=== PATIENT | female | born 1955 | race Caucasian/White ===

== ENCOUNTER → 2017-02-13 | Outpatient (CLI) | payer OTHER ==
[~2017-02-13] MED LIST: ABILIFY10 MG PO; AMANTADINE100 MG PO; ASPIRIN ADULT L81 M2 PO; ATARAX,VISTARIL50 MG PO; ATIVAN0.5 MG PO; B12,B-12,B 12500 MC1 PO; BUSPAR5 MG PO; CEFZIL 250250 MG/5 M PO; CIPROFLOXACIN500 MG PO; CLARITIN-D 12 H1 TAB PO; CLARITIN10 MG PO; CLOZAPINE100 MG PO; CLOZAPINE25 MG PO; COGENTIN0.5 MG PO; CYMBALTA60 M1 PO; EES400 MG PO; EPI-PEN1 MG/ML MR; FETZIMA40 M1 PO; FLEXERIL10 MG PO; FLONASE0.05 MG/AC NS; FLOVENT 220 M220 MCG INH; HYDROCODONE BIT1 T11 PO; LEVAQUIN750 M1 PO; LIPITOR20 MG PO; LIPITOR40 MG PO; LISINOPRIL20 MG PO; LORAZEPAM0.5 MG PO; MEDROL DOSEPAK4 MG PO; MOTRIN800 MG PO; NORFLEX100 MG PO; PREDNISONE10 MG PO; PRINIVIL10 MG PO; PRINIVIL5 MG PO; PROZAC20 MG PO; PYRIDIUM200 MG PO; RISPERDAL0.25 MG PO; ROBAXIN-750750 MG PO; SINGULAIR10 MG PO; SPIRIVA18 MCG IH; SYNTHROID0.05 MG PO; TESSALON PERLE100 MG PO; TOPAMAX100 MG PO; VICODIN 5/500 505 MG PO; VITAMIN D31000 IU PO; VOLTAREN50 MG PO; Vitamin E PO; ZITHROMAX Z PA250 MG PO; ZITHROMAX500 MG PO
[2017-02-13 10:21] LABS: BASO # 0.1 10*3/uL (0.0-0.1); BASO % 0.7 % (0.0-1.0); EOS # 0.2 10*3/uL (0.0-0.4); EOS % 3.2 % (1.0-4.0); HEMATOCRIT 41.5 % (37.0-47.0); HEMOGLOBIN 14.1 g/dl (12.0-16.0); LYMPH % 44.4 % (27.0-41.0); MEAN CELL VOLUME 91.6 fl (81.0-99.0); MEAN CORPUSCULAR HGB 31.1 pg (27.0-31.0); MEAN PLATELET VOLUME 9.5 fl (9.6-12.3); MONO # 0.5 10*3/uL (0.1-1.0); NEUT # 2.9 10*3/uL (2.3-7.9); NEUT % 43.4 % (47.0-73.0); PLATELET COUNT AUTOMATED 242 10*3/uL (130-400); RED BLOOD COUNT 4.53 10*6/uL (4.10-5.10); RED CELL DISTRI WIDTH 13.1 % (0-14.5); WHITE BLOOD COUNT 6.8 10*3/uL (4.8-10.8)
[2017-02-13 10:46] LABS: ALBUMIN 3.5 gm/dl (3.1-4.5); ALKALINE PHOSPHATASE 98 U/L (45-117); BILIRUBIN, TOTAL 0.4 mg/dl (0.2-1.0); BUN 18 mg/dl (7-24); CARBON DIOXIDE 27 mmol/L (21-32); CHLORIDE 108 mmol/L (98-107); CHOLESTEROL 120 mg/dL (<200); EST GLOM FILT AFRICAN AMERICAN > 60 ml/min; GLUCOSE 117 mg/dL (65-99); HDL CHOLESTEROL 61 mg/dl (40-60); IRON 58 ug/dL (50-170); IRON SATURATION 22 %; LDL CHOLESTEROL 46 mg/dL (9-159); POTASSIUM 3.9 mmol/L (3.5-5.1); SGOT/AST 18 IU/L (3-35); SGPT/ALT 26 U/L (12-78); SODIUM 140 mmol/L (136-145); TOTAL PROTEIN 7.1 gm/dL (6.4-8.2); TRIGLYCERIDES 65 mg/dl (<150); UIBC 204 ug/dL (110-365); VLDL CHOLESTEROL 13 mg/dL (6-40)
[2017-02-13 10:51] LABS: HEMOGLOBIN A1c 6.3 % (4.8-5.6)
[2017-02-13 10:52] LABS: THYROID STIM HORMONE (HS) < 0.005 uIU/ml (0.358-4.75)
[2017-02-13 11:20] LABS: FERRITIN 75.2 ng/mL (10.0-291.0); VITAMIN D, 25-HYDROXY 38.8 ng/mL (30-100)
[2017-02-13 11:31] LABS: FOLIC ACID > 24.00 ng/mL (>5.38)
== END ==
LOC: LAB 09:23
PROVIDERS: Physician Assistant Surgical
DX: E11.9 Type 2 diabetes mellitus without complications (principal); E78.5 Hyperlipidemia, unspecified; E55.9 Vitamin D deficiency, unspecified; R63.4 Abnormal weight loss; E56.9 Vitamin deficiency, unspecified; R53.82 Chronic fatigue, unspecified; M79.605 Pain in left leg; M25.551 Pain in right hip; M25.552 Pain in left hip; Z98.84 Bariatric surgery status

== ENCOUNTER 2017-06-03 01:12 | Emergency (ER) | payer OTHER ==
[~2017-06-03] VITALS: Ht 147.3 cm; Wt 65.8 kg
[2017-06-03 01:22] VITALS: BP 123/72
[2017-06-03 01:55] LABS: BASO # 0.1 10*3/uL (0.0-0.1); BASO % 0.7 % (0.0-1.0); EOS # 0.2 10*3/uL (0.0-0.4); EOS % 2.2 % (1.0-4.0); HEMATOCRIT 37.7 % (37.0-47.0); LYMPH # 3.6 10*3/uL (1.3-4.4); LYMPH % 35.8 % (27.0-41.0); MEAN CELL VOLUME 93.3 fl (81.0-99.0); MEAN CORPUSCULAR HGB 32.2 pg (27.0-31.0); MEAN CORPUSCULAR HGB CONC 34.5 g/dl (33.0-37.0); MEAN PLATELET VOLUME 9.5 fl (9.6-12.3); MONO # 0.9 10*3/uL (0.1-1.0); MONO % 9.1 % (3.0-9.0); NEUT # 5.2 10*3/uL (2.3-7.9); PLATELET COUNT AUTOMATED 213 10*3/uL (130-400); RED BLOOD COUNT 4.04 10*6/uL (4.10-5.10); RED CELL DISTRI WIDTH 13.4 % (0-14.5); WHITE BLOOD COUNT 9.9 10*3/uL (4.8-10.8)
[2017-06-03 02:11] LABS: ALBUMIN 3.3 gm/dl (3.1-4.5); ALKALINE PHOSPHATASE 116 U/L (45-117); BUN 14 mg/dl (7-24); CHLORIDE 106 mmol/L (98-107); CREATININE 0.58 mg/dL (0.55-1.02); POTASSIUM 3.6 mmol/L (3.5-5.1); SGOT/AST 19 IU/L (3-35); SGPT/ALT 24 U/L (12-78); SODIUM 141 mmol/L (136-145); TOTAL PROTEIN 6.7 gm/dL (6.4-8.2)
[2017-06-03] MEDS ORDERED: AVPAK AZITHROM250 M1 PO (02:36)
[2017-06-03] MEDS ORDERED: CLARITIN10 MG PO (02:36)
== END 2017-06-03 02:50 | disposition home or self-care (01) ==
LOC: ED 01:12
PROVIDERS: Student in an Organized Health Care Education/Training Program
DX: J40 Bronchitis, not specified as acute or chronic (principal); J06.9 Acute upper respiratory infection, unspecified; J44.9 Chronic obstructive pulmonary disease, unspecified; I10 Essential (primary) hypertension; E78.5 Hyperlipidemia, unspecified; E03.9 Hypothyroidism, unspecified; E11.9 Type 2 diabetes mellitus without complications; Z88.1 Allergy status to other antibiotic agents; Z88.0 Allergy status to penicillin; Z91.013 Allergy to seafood; Z88.8 Allergy status to other drugs, medicaments and biological substances; Z79.899 Other long term (current) drug therapy

== ENCOUNTER → 2017-10-02 | Outpatient (CLI) | payer OTHER ==
[~2017-10-02] MED LIST changes: +AVPAK AZITHROM250 M1 PO
== END | disposition home or self-care (01) ==
LOC: RAD 11:49
DX: M19.042 Primary osteoarthritis, left hand (principal); M19.041 Primary osteoarthritis, right hand

== ENCOUNTER → 2018-03-01 | Outpatient (CLI) | payer MEDICARE, OTHER | END | disposition home or self-care (01) | LOC: RAD 10:54 | DX: M25.512 Pain in left shoulder (principal); M25.511 Pain in right shoulder ==

== ENCOUNTER → 2018-07-17 | Outpatient (CLI) | payer MEDICARE, OTHER | END | disposition home or self-care (01) | LOC: MAMMO 06:51 | DX: Z12.31 Encounter for screening mammogram for malignant neoplasm of breast (principal) ==

== ENCOUNTER → 2019-03-10 | Outpatient (CLI) | payer MEDICARE, OTHER | END | disposition home or self-care (01) | LOC: CT 15:45 | DX: R10.13 Epigastric pain (principal); Z90.710 Acquired absence of both cervix and uterus ==

== ENCOUNTER → 2019-05-18 | Outpatient (CLI) | payer MEDICARE, OTHER ==
[2019-05-18 14:28] LABS: BASO % 0.5 % (0.0-1.0); EOS # 0.2 10*3/uL (0.0-0.4); EOS % 2.6 % (1.0-4.0); HEMATOCRIT 40.4 % (37.0-47.0); HEMOGLOBIN 13.3 g/dl (12.0-16.0); LYMPH # 2.9 10*3/uL (1.3-4.4); LYMPH % 47.9 % (27.0-41.0); MEAN CORPUSCULAR HGB 31.6 pg (27.0-31.0); MEAN CORPUSCULAR HGB CONC 32.9 g/dl (33.0-37.0); MONO # 0.5 10*3/uL (0.1-1.0); MONO % 8.9 % (3.0-9.0); NEUT # 2.4 10*3/uL (2.3-7.9); NEUT % 39.9 % (47.0-73.0); PLATELET COUNT AUTOMATED 201 10*3/uL (130-400); RED BLOOD COUNT 4.21 10*6/uL (4.10-5.10); RED CELL DISTRI WIDTH 13.5 % (0-14.5); WHITE BLOOD COUNT 6.1 10*3/uL (4.8-10.8)
[2019-05-18 15:02] LABS: ALBUMIN 3.8 gm/dl (3.1-4.5); ALKALINE PHOSPHATASE 96 U/L (45-117); BUN 13 mg/dl (7-24); CHLORIDE 108 mmol/L (98-107); CREATININE 0.68 mg/dL (0.55-1.02); IRON 78 ug/dL (50-170); POTASSIUM 4.4 mmol/L (3.5-5.1); SGOT/AST 23 IU/L (3-35); SODIUM 141 mmol/L (136-145); TOTAL IRON BINDING CAPACITY 315 ug/dl (250-450); TOTAL PROTEIN 7.1 gm/dL (6.4-8.2)
[2019-05-18 15:06] LABS: SGPT/ALT 31 U/L (12-78); THYROID STIM HORMONE (HS) 0.411 uIU/ml (0.358-4.75)
[2019-05-18 15:51] LABS: FERRITIN 18.1 ng/mL (10.0-291.0); VITAMIN D, 25-HYDROXY 19.2 ng/mL (30-100)
== END | disposition home or self-care (01) ==
LOC: LAB 13:37
PROVIDERS: Surgery
DX: E55.9 Vitamin D deficiency, unspecified (principal); E11.9 Type 2 diabetes mellitus without complications; R53.83 Other fatigue; Z90.3 Acquired absence of stomach [part of]

== ENCOUNTER → 2019-08-14 | Outpatient (CLI) | payer MEDICARE, OTHER | END | disposition home or self-care (01) | LOC: MRI 09:37 | DX: M50.33 Other cervical disc degeneration, cervicothoracic region (principal); M47.812 Spondylosis without myelopathy or radiculopathy, cervical region ==

== ENCOUNTER → 2019-09-18 | Outpatient (CLI) | payer MEDICARE, OTHER | END | disposition home or self-care (01) | LOC: RAD 11:40 | DX: M47.812 Spondylosis without myelopathy or radiculopathy, cervical region (principal); M50.20 Other cervical disc displacement, unspecified cervical region ==

== ENCOUNTER 2019-12-08 15:23 | Emergency (ER) | payer MEDICARE, OTHER ==
[~2019-12-08] VITALS: Ht 162.5 cm; Wt 99.8 kg
[2019-12-08 15:44] VITALS: BP 120/69
[2019-12-08 16:24] LABS: BASO # 0.1 10*3/uL (0.0-0.1); BASO % 0.8 % (0.0-1.0); EOS # 0.3 10*3/uL (0.0-0.4); HEMATOCRIT 40.1 % (37.0-47.0); HEMOGLOBIN 13.3 g/dl (12.0-16.0); LYMPH # 3.8 10*3/uL (1.3-4.4); LYMPH % 58.6 % (27.0-41.0); MEAN CORPUSCULAR HGB 31.5 pg (27.0-31.0); MEAN CORPUSCULAR HGB CONC 33.2 g/dl (33.0-37.0); MEAN PLATELET VOLUME 9.2 fl (9.6-12.3); MONO # 0.5 10*3/uL (0.1-1.0); MONO % 7.8 % (3.0-9.0); NEUT # 1.8 10*3/uL (2.3-7.9); NEUT % 28.6 % (47.0-73.0); PLATELET COUNT AUTOMATED 230 10*3/uL (130-400); RED BLOOD COUNT 4.22 10*6/uL (4.10-5.10); RED CELL DISTRI WIDTH 13.8 % (0-14.5); WHITE BLOOD COUNT 6.4 10*3/uL (4.8-10.8)
[2019-12-08 16:39] LABS: ALBUMIN 3.6 gm/dl (3.1-4.5); ALKALINE PHOSPHATASE 85 U/L (45-117); BUN 21 mg/dl (7-24); CHLORIDE 109 mmol/L (98-107); CREATININE 0.92 mg/dL (0.55-1.02); LIPASE 103 U/L (73-393); POTASSIUM 4.3 mmol/L (3.5-5.1); SGOT/AST 18 IU/L (3-35); SGPT/ALT 30 U/L (12-78); SODIUM 143 mmol/L (136-145); TOTAL PROTEIN 6.7 gm/dL (6.4-8.2)
[2019-12-08 16:42] LABS: ACT PARTIAL THROMBO TIME 24.3 SECONDS (20.0-32.1); INTERNATIONAL NORM RATIO 0.9 (2.0-3.5)
[2019-12-08 17:00] LABS: BILIRUBIN 1+ (NEGATIVE); BLOOD NEGATIVE (NEGATIVE); CLARITY CLEAR (CLEAR); COLOR YELLOW (YELLOW); GLUCOSE NEGATIVE (NEGATIVE); KETONE 1+ (NEGATIVE); LEUKO ESTERASE NEGATIVE (NEGATIVE); NITRITE NEGATIVE (NEGATIVE); UROBILINOGEN 0.2 E.U./dl (0.2-1.0)
[2019-12-08 17:01] LABS: WBC 0-2 wbc/hpf (0-5)
== END 2019-12-08 18:42 | disposition home or self-care (01) ==
LOC: ED 15:23
PROVIDERS: Nurse Practitioner Family
DX: R29.810 Facial weakness (principal); R20.0 Anesthesia of skin; R20.2 Paresthesia of skin; R51 Headache; J44.9 Chronic obstructive pulmonary disease, unspecified; I10 Essential (primary) hypertension; E03.9 Hypothyroidism, unspecified; E78.00 Pure hypercholesterolemia, unspecified; E11.40 Type 2 diabetes mellitus with diabetic neuropathy, unspecified; Z91.041 Radiographic dye allergy status; Z88.1 Allergy status to other antibiotic agents; Z88.0 Allergy status to penicillin; Z91.013 Allergy to seafood; Z88.8 Allergy status to other drugs, medicaments and biological substances; Z79.899 Other long term (current) drug therapy; Z79.2 Long term (current) use of antibiotics; Z86.73 Personal history of transient ischemic attack (TIA), and cerebral infarction without residual deficits; Z90.710 Acquired absence of both cervix and uterus

== ENCOUNTER → 2020-02-29 | Outpatient (CLI) | payer MEDICARE, OTHER | END | disposition home or self-care (01) | LOC: US 11:18 | DX: E04.2 Nontoxic multinodular goiter (principal) ==

== ENCOUNTER → 2020-03-10 | Outpatient (CLI) | payer MEDICARE, OTHER | END | disposition home or self-care (01) | LOC: US 11:26 | DX: N63.31 Unspecified lump in axillary tail of the right breast (principal) ==

== ENCOUNTER → 2020-03-25 | Outpatient (CLI) | payer MEDICARE, OTHER ==
[~2020-03-25] MED LIST changes: +CYCLOBENZAPRINE10 MG PO; +NEURONTIN100 MG PO; +NORCO 5-325 TA1 EACH PO; +PRILOSEC20 M1 PO; +VISTARIL25 M2 PO
== END | disposition home or self-care (01) ==
LOC: COVID19 08:12
DX: Z01.818 Encounter for other preprocedural examination (principal); Z11.59 Encounter for screening for other viral diseases; R73.03 Prediabetes

== ENCOUNTER → 2020-03-31 | Day surgery (SDC) | payer MEDICARE, OTHER ==
[~2020-03-31] VITALS: Ht 149.8 cm; Wt 86.2 kg
[2020-03-31 09:34] VITALS: BP 143/77
[2020-03-31 11:51] VITALS: BP 149/80
[2020-03-31 12:05] VITALS: BP 123/75
[2020-03-31 12:16] VITALS: BP 89/62
[2020-03-31 12:25] VITALS: BP 146/86
[2020-03-31 12:45] VITALS: BP 137/45
== END | disposition home or self-care (01) ==
LOC: SDC 03-28 13:15
DX: C76.1 Malignant neoplasm of thorax (principal); I10 Essential (primary) hypertension; J44.9 Chronic obstructive pulmonary disease, unspecified; G47.30 Sleep apnea, unspecified; I25.2 Old myocardial infarction; E11.9 Type 2 diabetes mellitus without complications; E66.9 Obesity, unspecified; Z68.38 Body mass index [BMI] 38.0-38.9, adult; Z98.890 Other specified postprocedural states; Z79.899 Other long term (current) drug therapy

== ENCOUNTER 2020-05-07 10:43 | Emergency (ER) | payer MEDICARE, OTHER ==
[~2020-05-07] VITALS: Ht 149.8 cm; Wt 85.7 kg
[2020-05-07 10:55] VITALS: BP 120/70
[2020-05-07] MEDS ORDERED: SEPTDS PO (11:53)
== END 2020-05-07 12:04 | disposition home or self-care (01) ==
LOC: ED 10:43
DX: M96.843 Postprocedural seroma of a musculoskeletal structure following other procedure (principal); F41.9 Anxiety disorder, unspecified; F31.9 Bipolar disorder, unspecified; E03.9 Hypothyroidism, unspecified; Z79.82 Long term (current) use of aspirin; E78.5 Hyperlipidemia, unspecified; J45.909 Unspecified asthma, uncomplicated; E11.9 Type 2 diabetes mellitus without complications; I10 Essential (primary) hypertension; E78.00 Pure hypercholesterolemia, unspecified; J44.9 Chronic obstructive pulmonary disease, unspecified; Z90.710 Acquired absence of both cervix and uterus; Z88.8 Allergy status to other drugs, medicaments and biological substances; Z91.013 Allergy to seafood; Z88.0 Allergy status to penicillin; Z79.899 Other long term (current) drug therapy

== ENCOUNTER → 2020-07-08 | Outpatient (CLI) | payer MEDICARE, OTHER ==
[~2020-07-08] MED LIST changes: +SEPTDS PO
== END | disposition home or self-care (01) ==
LOC: RAD 09:39
PROVIDERS: ATTEND Pain Medicine Interventional Pain Medicine
DX: M47.816 Spondylosis without myelopathy or radiculopathy, lumbar region (principal)

== ENCOUNTER → 2020-07-21 | Outpatient (CLI) | payer MEDICARE, OTHER ==
[2020-07-21 09:15] LABS: CREATININE 0.85 mg/dL (0.55-1.02)
== END | disposition home or self-care (01) ==
LOC: LAB 08:36 → MRI 08:36
PROVIDERS: Radiology Diagnostic Radiology; ATTEND Nurse Practitioner Family
DX: M51.36 Other intervertebral disc degeneration, lumbar region (principal); M47.816 Spondylosis without myelopathy or radiculopathy, lumbar region

== ENCOUNTER → 2020-11-11 | Outpatient (CLI) | payer MEDICARE, OTHER ==
[~2020-11-11] MED LIST changes: +COLACE100 MG PO; +PERCOCET 5-3251 EACH PO; +ZOFRAN4 MG PO
== END | disposition home or self-care (01) ==
LOC: LAB 12:30
PROVIDERS: ATTEND Nurse Practitioner Primary Care
DX: R06.02 Shortness of breath (principal); R53.83 Other fatigue; R14.0 Abdominal distension (gaseous)

== ENCOUNTER → 2020-11-28 | Outpatient (CLI) | payer MEDICARE, OTHER | END | disposition home or self-care (01) | LOC: COVID19 14:02 | PROVIDERS: ATTEND Nurse Practitioner Primary Care | DX: Z20.822 Contact with and (suspected) exposure to COVID-19 (principal) ==

== ENCOUNTER → 2020-12-19 | Outpatient (CLI) | payer MEDICARE, OTHER | END | disposition home or self-care (01) | LOC: NM 05:09 | PROVIDERS: ATTEND Nurse Practitioner Primary Care | DX: R10.11 Right upper quadrant pain (principal) ==

== ENCOUNTER → 2021-01-04 | Outpatient (CLI) | payer MEDICARE, OTHER | END | disposition home or self-care (01) | LOC: COVID19 13:57 | PROVIDERS: ATTEND Surgery | DX: Z01.812 Encounter for preprocedural laboratory examination (principal); Z20.822 Contact with and (suspected) exposure to COVID-19 ==

== ENCOUNTER → 2021-01-09 | Day surgery (SDC) | payer MEDICARE, OTHER ==
[~2021-01-09] VITALS: Ht 147.3 cm; Wt 79.4 kg
[2021-01-09] VITALS (8 sets, daily range): BP systolic 101–154; BP diastolic 53–81
== END ==
LOC: SDC 01-04 13:15
PROVIDERS: ATTEND Surgery
DX: K82.8 Other specified diseases of gallbladder (principal); K81.1 Chronic cholecystitis; J45.909 Unspecified asthma, uncomplicated; E11.40 Type 2 diabetes mellitus with diabetic neuropathy, unspecified; F31.9 Bipolar disorder, unspecified; E03.9 Hypothyroidism, unspecified; I10 Essential (primary) hypertension; E78.00 Pure hypercholesterolemia, unspecified; J44.9 Chronic obstructive pulmonary disease, unspecified; Z86.73 Personal history of transient ischemic attack (TIA), and cerebral infarction without residual deficits; Z96.653 Presence of artificial knee joint, bilateral; Z90.710 Acquired absence of both cervix and uterus; M79.7 Fibromyalgia; Z88.0 Allergy status to penicillin; Z88.5 Allergy status to narcotic agent; Z88.8 Allergy status to other drugs, medicaments and biological substances; Z79.899 Other long term (current) drug therapy

== ENCOUNTER → 2021-01-24 | Outpatient (CLI) | payer MEDICARE, OTHER ==
[2021-01-24 15:22] LABS: BASO # 0.1 10*3/uL (0.0-0.1); BASO % 0.8 % (0.0-1.0); EOS # 0.4 10*3/uL (0.0-0.4); EOS % 4.4 % (1.0-4.0); HEMATOCRIT 41.5 % (37.0-47.0); LYMPH % 40.9 % (27.0-41.0); MEAN CELL VOLUME 94.1 fl (81.0-99.0); MEAN CORPUSCULAR HGB 32.2 pg (27.0-31.0); MEAN CORPUSCULAR HGB CONC 34.2 g/dl (33.0-37.0); MONO # 0.7 10*3/uL (0.1-1.0); MONO % 7.2 % (3.0-9.0); NEUT # 4.5 10*3/uL (2.3-7.9); NEUT % 46.5 % (47.0-73.0); PLATELET COUNT AUTOMATED 284 10*3/uL (130-400); RED BLOOD COUNT 4.41 10*6/uL (4.10-5.10); RED CELL DISTRI WIDTH 13.2 % (0-14.5); WHITE BLOOD COUNT 9.7 10*3/uL (4.8-10.8)
== END | disposition home or self-care (01) ==
LOC: LAB 15:04
PROVIDERS: ATTEND Nurse Practitioner Primary Care
DX: T14.8XXA Other injury of unspecified body region, initial encounter (principal)

== ENCOUNTER 2021-05-07 07:56 | Emergency (ER) | payer MEDICARE, OTHER ==
[~2021-05-07] VITALS: Ht 149.8 cm; Wt 73.5 kg
[2021-05-07 08:02] VITALS: BP 133/81
[2021-05-07 08:34] LABS: BASO # 0.1 10*3/uL (0.0-0.1); BASO % 0.7 % (0.0-1.0); EOS # 0.2 10*3/uL (0.0-0.4); EOS % 3.6 % (1.0-4.0); HEMATOCRIT 40.6 % (37.0-47.0); LYMPH # 2.9 10*3/uL (1.3-4.4); LYMPH % 43.4 % (27.0-41.0); MEAN CELL VOLUME 96.7 fl (81.0-99.0); MEAN CORPUSCULAR HGB 32.6 pg (27.0-31.0); MEAN CORPUSCULAR HGB CONC 33.7 g/dl (33.0-37.0); MEAN PLATELET VOLUME 9.2 fl (9.6-12.3); MONO # 0.6 10*3/uL (0.1-1.0); MONO % 8.8 % (3.0-9.0); NEUT # 2.9 10*3/uL (2.3-7.9); NEUT % 43.4 % (47.0-73.0); PLATELET COUNT AUTOMATED 230 10*3/uL (130-400); WHITE BLOOD COUNT 6.7 10*3/uL (4.8-10.8)
[2021-05-07 08:54] LABS: ALBUMIN 3.6 gm/dl (3.1-4.5); ALKALINE PHOSPHATASE 98 U/L (45-117); BUN 15 mg/dl (7-24); CHLORIDE 109 mmol/L (98-107); CREATININE 0.68 mg/dL (0.55-1.02); POTASSIUM 3.7 mmol/L (3.5-5.1); SGOT/AST 18 IU/L (3-35); SGPT/ALT 34 U/L (12-78); SODIUM 135 mmol/L (136-145); TOTAL PROTEIN 6.8 gm/dL (6.4-8.2)
[2021-05-07 08:55] LABS: TROPONIN I < 0.015 ng/ml (<0.045)
== END 2021-05-07 09:35 | disposition home or self-care (01) ==
LOC: ED 07:56
PROVIDERS: Emergency Medicine
DX: J06.9 Acute upper respiratory infection, unspecified (principal); J44.9 Chronic obstructive pulmonary disease, unspecified; I10 Essential (primary) hypertension; E78.5 Hyperlipidemia, unspecified; E11.9 Type 2 diabetes mellitus without complications; F31.9 Bipolar disorder, unspecified; F41.9 Anxiety disorder, unspecified; Z91.041 Radiographic dye allergy status; Z88.1 Allergy status to other antibiotic agents; Z88.0 Allergy status to penicillin; Z91.013 Allergy to seafood; Z88.8 Allergy status to other drugs, medicaments and biological substances; Z79.899 Other long term (current) drug therapy; Z79.2 Long term (current) use of antibiotics; Z79.82 Long term (current) use of aspirin; Z90.711 Acquired absence of uterus with remaining cervical stump; Z90.89 Acquired absence of other organs

== ENCOUNTER → 2021-05-24 | Outpatient (CLI) | payer MEDICARE, OTHER | END | disposition home or self-care (01) | LOC: MAMMO 04-26 08:30 → RAD 07:54 | PROVIDERS: ATTEND Nurse Practitioner Primary Care | DX: M85.89 Other specified disorders of bone density and structure, multiple sites (principal); N64.89 Other specified disorders of breast; Z78.0 Asymptomatic menopausal state ==

== ENCOUNTER → 2021-07-11 | Outpatient (CLI) | payer MEDICARE, OTHER ==
[2021-07-11 10:26] LABS: BASO # 0.1 10*3/uL (0.0-0.1); BASO % 1.1 % (0.0-1.0); EOS # 0.3 10*3/uL (0.0-0.4); EOS % 4.9 % (1.0-4.0); HEMATOCRIT 40.2 % (37.0-47.0); LYMPH # 3.2 10*3/uL (1.3-4.4); LYMPH % 49.2 % (27.0-41.0); MEAN CELL VOLUME 100.5 fl (81.0-99.0); MEAN CORPUSCULAR HGB 32.8 pg (27.0-31.0); MEAN CORPUSCULAR HGB CONC 32.6 g/dl (33.0-37.0); MONO # 0.6 10*3/uL (0.1-1.0); MONO % 8.5 % (3.0-9.0); NEUT # 2.4 10*3/uL (2.3-7.9); NEUT % 36.1 % (47.0-73.0); PLATELET COUNT AUTOMATED 224 10*3/uL (130-400); RED CELL DISTRI WIDTH 13.1 % (0-14.5); WHITE BLOOD COUNT 6.6 10*3/uL (4.8-10.8)
[2021-07-11 10:54] LABS: BUN 18 mg/dl (7-24); CHLORIDE 106 mmol/L (98-107); CREATININE 0.77 mg/dL (0.55-1.02); POTASSIUM 4.3 mmol/L (3.5-5.1); SODIUM 138 mmol/L (136-145)
== END | disposition home or self-care (01) ==
LOC: LAB 09:58
PROVIDERS: ATTEND Orthopaedic Surgery
DX: R06.02 Shortness of breath (principal); M48.02 Spinal stenosis, cervical region

== ENCOUNTER → 2021-09-19 | Outpatient (CLI) | payer MEDICARE, OTHER | END | disposition home or self-care (01) | LOC: US 14:37 | PROVIDERS: ATTEND Nurse Practitioner Primary Care | DX: E04.1 Nontoxic single thyroid nodule (principal); R22.1 Localized swelling, mass and lump, neck; E03.9 Hypothyroidism, unspecified ==

== ENCOUNTER → 2021-10-04 | Outpatient (CLI) | payer MEDICARE, OTHER | END | disposition home or self-care (01) | LOC: CT 10-02 08:00 | PROVIDERS: ATTEND Nurse Practitioner Primary Care | DX: R22.1 Localized swelling, mass and lump, neck (principal) ==

== ENCOUNTER → 2021-11-01 | Outpatient (CLI) | payer MEDICARE, OTHER | END | disposition home or self-care (01) | LOC: RAD 08:56 | PROVIDERS: ATTEND Nurse Practitioner Primary Care | DX: R06.02 Shortness of breath (principal) ==

== ENCOUNTER → 2022-02-14 | Outpatient (CLI) | payer MEDICARE, OTHER | END | disposition home or self-care (01) | LOC: CARD 11:44 | PROVIDERS: ATTEND Physician Assistant | DX: F15.20 Other stimulant dependence, uncomplicated (principal); R00.1 Bradycardia, unspecified ==

== ENCOUNTER → 2022-02-27 | Outpatient (CLI) | payer MEDICARE, OTHER | END | disposition home or self-care (01) | LOC: US 02:03 | PROVIDERS: ATTEND Surgery | DX: R22.31 Localized swelling, mass and lump, right upper limb (principal) ==

== ENCOUNTER 2022-04-13 22:22 | Inpatient (IN) | payer MEDICARE, OTHER ==
[~2022-04-13] VITALS: Ht 149.8 cm; Wt 71.9 kg
[~2022-04-13 22:22] MED LIST changes: -SYNTHROID0.05 MG PO; +SYNTHROID25 MCG PO
[2022-04-13 22:33] VITALS: BP 168/90
[2022-04-13 22:44] LABS: HEMATOCRIT 39.8 % (37.0-47.0); MEAN CELL VOLUME 91.9 fl (81.0-99.0); MEAN CORPUSCULAR HGB 31.9 pg (27.0-31.0); MEAN CORPUSCULAR HGB CONC 34.7 g/dl (33.0-37.0); MEAN PLATELET VOLUME 9.4 fl (9.6-12.3); PLATELET COUNT AUTOMATED 233 10*3/uL (130-400); RED BLOOD COUNT 4.33 10*6/uL (4.10-5.10)
[2022-04-13 22:51] LABS: MANUAL DIFF REFLEX YES
[2022-04-13 23:00] LABS: ACT PARTIAL THROMBO TIME 24.9 SECONDS (20.0-32.1)
[2022-04-13 23:05] LABS: ALKALINE PHOSPHATASE 80 U/L (45-117); BUN 24 mg/dl (7-24); CHLORIDE 107 mmol/L (98-107); CREATININE 0.74 mg/dL (0.55-1.02); POTASSIUM 3.7 mmol/L (3.5-5.1); SGOT/AST 19 IU/L (3-35); SGPT/ALT 24 U/L (12-78); SODIUM 140 mmol/L (136-145); TOTAL PROTEIN 6.7 gm/dL (6.4-8.2)
[2022-04-13 23:13] LABS: BASOPHILS 1 % (0-1); PLATELET SUFFICIENCY NORMAL (NORMAL); TOTAL CELLS COUNTED 100 #CELLS
[2022-04-14 04:35] VITALS: BP 117/71
[2022-04-14] MEDS ORDERED: CYMBALTA60 MG PO (05:15)
[2022-04-14] MEDS ORDERED: B121000 MCG/2 IM (05:20)
[2022-04-14] MEDS ORDERED: IBU800 MG PO (05:20)
[2022-04-14] MEDS ORDERED: VYVANSE40 MG PO (05:21)
== END 2022-04-14 08:10 | disposition left against medical advice (07) | DRG 313 ==
LOC: ED 22:22 → EDHOLD 04-14 02:28 → 5E 04-14 03:29
PROVIDERS: Nurse Practitioner Family; ADMIT Internal Medicine; ATTEND Internal Medicine
DX: R07.9 Chest pain, unspecified (principal); F41.9 Anxiety disorder, unspecified; I10 Essential (primary) hypertension; F32.9 Major depressive disorder, single episode, unspecified; E78.5 Hyperlipidemia, unspecified; E11.9 Type 2 diabetes mellitus without complications; E03.9 Hypothyroidism, unspecified; Z53.29 Procedure and treatment not carried out because of patient's decision for other reasons; J44.9 Chronic obstructive pulmonary disease, unspecified; Z88.8 Allergy status to other drugs, medicaments and biological substances; Z88.6 Allergy status to analgesic agent; Z88.1 Allergy status to other antibiotic agents; Z88.0 Allergy status to penicillin; Z91.013 Allergy to seafood; Z86.73 Personal history of transient ischemic attack (TIA), and cerebral infarction without residual deficits; Z90.710 Acquired absence of both cervix and uterus; Z90.721 Acquired absence of ovaries, unilateral

== ENCOUNTER → 2022-06-21 | Outpatient (CLI) | payer MEDICARE, OTHER ==
[~2022-06-21] MED LIST changes: +B121000 MCG/2 IM; +CYMBALTA60 MG PO; +IBU800 MG PO; +VYVANSE40 MG PO
[2022-06-21 10:12] LABS: BASO # 0.1 10*3/uL (0.0-0.1); EOS # 0.3 10*3/uL (0.0-0.4); EOS % 4.6 % (1.0-4.0); HEMATOCRIT 44.7 % (37.0-47.0); LYMPH # 2.4 10*3/uL (1.3-4.4); MEAN CELL VOLUME 97.4 fl (81.0-99.0); MEAN CORPUSCULAR HGB CONC 32.9 g/dl (33.0-37.0); MEAN PLATELET VOLUME 9.2 fl (9.6-12.3); MONO # 0.6 10*3/uL (0.1-1.0); MONO % 9.4 % (3.0-9.0); NEUT # 3.2 10*3/uL (2.3-7.9); NEUT % 48.7 % (47.0-73.0); PLATELET COUNT AUTOMATED 247 10*3/uL (130-400); RED BLOOD COUNT 4.59 10*6/uL (4.10-5.10); RED CELL DISTRI WIDTH 13.2 % (0-14.5); WHITE BLOOD COUNT 6.7 10*3/uL (4.8-10.8)
[2022-06-21 10:34] LABS: BUN 17 mg/dl (7-24); CHLORIDE 108 mmol/L (98-107); POTASSIUM 4.3 mmol/L (3.5-5.1); SODIUM 142 mmol/L (136-145)
[2022-06-21 10:45] LABS: ALKALINE PHOSPHATASE 84 U/L (45-117); CHOLESTEROL 150 mg/dL (<200); CREATININE 0.74 mg/dL (0.55-1.02); FREE T4 1.09 ng/dl (0.76-1.46); LDL CHOLESTEROL 54 mg/dL (9-159); SGOT/AST 25 IU/L (3-35); SGPT/ALT 47 U/L (12-78); THYROID STIM HORMONE (HS) 0.396 uIU/ml (0.358-4.75); TOTAL PROTEIN 7.4 gm/dL (6.4-8.2); TRIGLYCERIDES 67 mg/dl (<150)
== END | disposition home or self-care (01) ==
LOC: MAMMO 05-31 09:30 → LAB 09:08
PROVIDERS: ATTEND Nurse Practitioner Primary Care
DX: Z12.31 Encounter for screening mammogram for malignant neoplasm of breast (principal); N64.9 Disorder of breast, unspecified; N63.21 Unspecified lump in the left breast, upper outer quadrant; E11.65 Type 2 diabetes mellitus with hyperglycemia; E55.9 Vitamin D deficiency, unspecified

== ENCOUNTER → 2022-09-20 | Outpatient (CLI) | payer MEDICARE, OTHER | END | disposition home or self-care (01) | LOC: RAD 13:10 | PROVIDERS: ATTEND Nurse Practitioner Family | DX: R05.1 Acute cough (principal); M47.814 Spondylosis without myelopathy or radiculopathy, thoracic region; M19.012 Primary osteoarthritis, left shoulder; M19.011 Primary osteoarthritis, right shoulder ==

== ENCOUNTER 2023-01-31 09:50 | Emergency (ER) | payer MEDICARE, OTHER ==
[~2023-01-31] VITALS: Wt 62.6 kg
[2023-01-31 10:18] VITALS: BP 131/98
[2023-01-31 11:30] LABS: BASO # 0.1 10*3/uL (0.0-0.1); BASO % 0.5 % (0.0-1.0); EOS # 0.2 10*3/uL (0.0-0.4); EOS % 1.5 % (1.0-4.0); HEMATOCRIT 42.5 % (37.0-47.0); LYMPH # 3.4 10*3/uL (1.3-4.4); LYMPH % 31.1 % (27.0-41.0); MEAN CELL VOLUME 96.2 fl (81.0-99.0); MEAN CORPUSCULAR HGB 32.6 pg (27.0-31.0); MEAN CORPUSCULAR HGB CONC 33.9 g/dl (33.0-37.0); MEAN PLATELET VOLUME 8.5 fl (9.6-12.3); MONO # 0.8 10*3/uL (0.1-1.0); NEUT # 6.5 10*3/uL (2.3-7.9); NEUT % 59.6 % (47.0-73.0); PLATELET COUNT AUTOMATED 320 10*3/uL (130-400); RED BLOOD COUNT 4.42 10*6/uL (4.10-5.10); RED CELL DISTRI WIDTH 13.9 % (0-14.5); WHITE BLOOD COUNT 10.9 10*3/uL (4.8-10.8)
[2023-01-31 11:42] LABS: ACT PARTIAL THROMBO TIME 23.1 SECONDS (20.0-32.1)
[2023-01-31 11:51] LABS: ALKALINE PHOSPHATASE 67 U/L (46-116); BUN 15 mg/dl (9-23); CHLORIDE 106 mmol/L (98-107); LIPASE 41 U/L (12-53); POTASSIUM 4.2 mmol/L (3.4-5.1); SGPT/ALT 54 U/L (10-49); TOTAL PROTEIN 6.5 gm/dL (6.0-8.0)
[2023-01-31] MEDS ORDERED: PREDNISONE10 MG PO (13:21)
[2023-01-31] MEDS ORDERED: NYST SUSP PO (13:21)
== END 2023-01-31 13:48 | disposition home or self-care (01) ==
LOC: ED 09:50
PROVIDERS: Emergency Medicine
DX: J44.1 Chronic obstructive pulmonary disease with (acute) exacerbation (principal); Z88.8 Allergy status to other drugs, medicaments and biological substances; Z88.0 Allergy status to penicillin; Z91.013 Allergy to seafood; Z88.1 Allergy status to other antibiotic agents; Z79.899 Other long term (current) drug therapy; Z90.49 Acquired absence of other specified parts of digestive tract; Z90.89 Acquired absence of other organs; Z90.710 Acquired absence of both cervix and uterus

== ENCOUNTER → 2023-06-12 | Outpatient (CLI) | payer MEDICARE, OTHER ==
[~2023-06-12] MED LIST changes: +NYST SUSP PO
[2023-06-12 10:02] LABS: BASO # 0.1 10*3/uL (0.0-0.1); BASO % 0.9 % (0.0-1.0); EOS # 0.2 10*3/uL (0.0-0.4); EOS % 2.8 % (1.0-4.0); HEMATOCRIT 44.9 % (37.0-47.0); LYMPH # 2.2 10*3/uL (1.3-4.4); LYMPH % 33.9 % (27.0-41.0); MEAN CELL VOLUME 94.9 fl (81.0-99.0); MEAN CORPUSCULAR HGB 31.7 pg (27.0-31.0); MEAN CORPUSCULAR HGB CONC 33.4 g/dl (33.0-37.0); MEAN PLATELET VOLUME 8.5 fl (9.6-12.3); MONO # 0.6 10*3/uL (0.1-1.0); MONO % 9.2 % (3.0-9.0); NEUT # 3.4 10*3/uL (2.3-7.9); PLATELET COUNT AUTOMATED 266 10*3/uL (130-400); RED BLOOD COUNT 4.73 10*6/uL (4.10-5.10); RED CELL DISTRI WIDTH 12.8 % (0-14.5); WHITE BLOOD COUNT 6.4 10*3/uL (4.8-10.8)
[2023-06-12 10:30] LABS: ALKALINE PHOSPHATASE 83 U/L (46-116); BUN 13 mg/dl (9-23); CHLORIDE 107 mmol/L (98-107); CHOLESTEROL 188 mg/dL (<200); LDL CHOLESTEROL 98 mg/dL (9-159); POTASSIUM 4.4 mmol/L (3.4-5.1); SGPT/ALT 25 U/L (10-49); TOTAL PROTEIN 6.7 gm/dL (6.0-8.0); TRIGLYCERIDES 66 mg/dl (<150)
[2023-06-12 11:16] LABS: FREE T4 1.11 ng/dl (0.89-1.76)
== END | disposition home or self-care (01) ==
LOC: LAB 09:37
PROVIDERS: ATTEND Nurse Practitioner Primary Care
DX: E11.9 Type 2 diabetes mellitus without complications (principal); E53.8 Deficiency of other specified B group vitamins; Z79.899 Other long term (current) drug therapy

== ENCOUNTER → 2023-06-25 | Outpatient (CLI) | payer MEDICARE, OTHER ==
[2023-06-25 12:34] LABS: BASO % 0.6 % (0.0-1.0); EOS # 0.2 10*3/uL (0.0-0.4); EOS % 2.9 % (1.0-4.0); HEMATOCRIT 43.6 % (37.0-47.0); LYMPH % 29.9 % (27.0-41.0); MEAN CELL VOLUME 97.1 fl (81.0-99.0); MEAN CORPUSCULAR HGB 32.1 pg (27.0-31.0); MEAN PLATELET VOLUME 8.7 fl (9.6-12.3); MONO # 0.8 10*3/uL (0.1-1.0); MONO % 12.1 % (3.0-9.0); NEUT # 3.5 10*3/uL (2.3-7.9); NEUT % 54.2 % (47.0-73.0); PLATELET COUNT AUTOMATED 232 10*3/uL (130-400); RED BLOOD COUNT 4.49 10*6/uL (4.10-5.10); RED CELL DISTRI WIDTH 13.4 % (0-14.5); WHITE BLOOD COUNT 6.5 10*3/uL (4.8-10.8)
[2023-06-25 12:56] LABS: ALKALINE PHOSPHATASE 82 U/L (46-116); BUN 11 mg/dl (9-23); CHLORIDE 108 mmol/L (98-107); POTASSIUM 4.4 mmol/L (3.4-5.1); SGPT/ALT 25 U/L (10-49); TOTAL PROTEIN 6.6 gm/dL (6.0-8.0)
== END | disposition home or self-care (01) ==
LOC: LAB 12:00
PROVIDERS: ATTEND Nurse Practitioner Family
DX: J44.1 Chronic obstructive pulmonary disease with (acute) exacerbation (principal); R05.8 Other specified cough; R06.02 Shortness of breath

== ENCOUNTER 2023-07-01 12:15 | Emergency (ER) | payer MEDICARE, OTHER ==
[~2023-07-01] VITALS: Ht 149.8 cm; Wt 64.9 kg
[2023-07-01 12:26] VITALS: BP 129/81
[2023-07-01 13:19] LABS: BASO % 0.3 % (0.0-1.0); EOS # 0.3 10*3/uL (0.0-0.4); EOS % 4.8 % (1.0-4.0); LYMPH # 2.4 10*3/uL (1.3-4.4); LYMPH % 34.9 % (27.0-41.0); MEAN CELL VOLUME 96.1 fl (81.0-99.0); MEAN CORPUSCULAR HGB 32.7 pg (27.0-31.0); MEAN PLATELET VOLUME 8.7 fl (9.6-12.3); MONO # 0.6 10*3/uL (0.1-1.0); MONO % 9.2 % (3.0-9.0); NEUT # 3.5 10*3/uL (2.3-7.9); NEUT % 50.7 % (47.0-73.0); PLATELET COUNT AUTOMATED 249 10*3/uL (130-400); RED BLOOD COUNT 4.37 10*6/uL (4.10-5.10); RED CELL DISTRI WIDTH 13.4 % (0-14.5); WHITE BLOOD COUNT 6.9 10*3/uL (4.8-10.8)
[2023-07-01] MEDS ORDERED: VIBRAMYCIN100 MG PO (13:31)
[2023-07-01] MEDS ORDERED: CARVEDILOL3.125 MG PO (13:32)
[2023-07-01] MEDS ORDERED: LORAZEPAM0.5 M1 PO (13:34)
[2023-07-01] MEDS ORDERED: OZEMPIC2 MG/0.71 SQ (13:36)
[2023-07-01] MEDS ORDERED: FLONASE ALLERG9.9 ML NAS (13:37)
[2023-07-01] MEDS ORDERED: DICLOFENAC SODI50 GM T (13:37)
[2023-07-01 13:54] LABS: ALKALINE PHOSPHATASE 91 U/L (46-116); BUN 7 mg/dl (9-23); CHLORIDE 105 mmol/L (98-107); POTASSIUM 4.2 mmol/L (3.4-5.1); SGPT/ALT 28 U/L (10-49); TOTAL PROTEIN 6.6 gm/dL (6.0-8.0)
[2023-07-01] MEDS ORDERED: LEVOFLOXACIN750 M2 PO (15:01)
[2023-07-01] MEDS ORDERED: PREDNISONE50 MG PO (15:01)
[2023-07-01] MEDS ORDERED: BENZONATATE100 M1 PO (15:14)
== END 2023-07-01 15:27 | disposition home or self-care (01) ==
LOC: ED 12:15
PROVIDERS: Internal Medicine
DX: J44.9 Chronic obstructive pulmonary disease, unspecified (principal); E11.40 Type 2 diabetes mellitus with diabetic neuropathy, unspecified; I10 Essential (primary) hypertension; E78.00 Pure hypercholesterolemia, unspecified; F31.9 Bipolar disorder, unspecified; Z86.73 Personal history of transient ischemic attack (TIA), and cerebral infarction without residual deficits

== ENCOUNTER → 2023-07-24 | Outpatient (CLI) | payer MEDICARE, OTHER ==
[~2023-07-24] MED LIST changes: +BENZONATATE100 M1 PO; +CARVEDILOL3.125 MG PO; +DICLOFENAC SODI50 GM T; +FLONASE ALLERG9.9 ML NAS; +LEVOFLOXACIN750 M2 PO; +LORAZEPAM0.5 M1 PO; +OZEMPIC2 MG/0.71 SQ; +PREDNISONE50 MG PO; +VIBRAMYCIN100 MG PO
[2023-07-25 15:06] LABS: THYROGLOBULIN ANTIBODY 4.1 IU/mL (0.0-0.9)
== END | disposition home or self-care (01) ==
LOC: LAB 10:57
PROVIDERS: ATTEND Nurse Practitioner Primary Care
DX: E78.5 Hyperlipidemia, unspecified (principal); R79.89 Other specified abnormal findings of blood chemistry

== ENCOUNTER → 2023-08-09 | Outpatient (CLI) | payer MEDICARE, OTHER | END | disposition home or self-care (01) | LOC: US 10:12 | PROVIDERS: ATTEND Nurse Practitioner Primary Care | DX: E04.2 Nontoxic multinodular goiter (principal); E05.90 Thyrotoxicosis, unspecified without thyrotoxic crisis or storm ==

== ENCOUNTER → 2024-02-21 | Outpatient (CLI) | payer MEDICARE, OTHER | END | disposition home or self-care (01) | LOC: RAD 16:25 | PROVIDERS: ATTEND Nurse Practitioner Primary Care | DX: M43.22 Fusion of spine, cervical region (principal); M47.813 Spondylosis without myelopathy or radiculopathy, cervicothoracic region ==

== ENCOUNTER → 2024-03-06 | Outpatient (CLI) | payer MEDICARE, OTHER ==
[2024-03-06 10:40] LABS: FREE T4 1.19 ng/dl (0.89-1.76); TOTAL PROTEIN 6.7 gm/dL (6.0-8.0)
== END | disposition home or self-care (01) ==
LOC: LAB 09:01
PROVIDERS: ATTEND Internal Medicine
DX: E55.9 Vitamin D deficiency, unspecified (principal); E78.5 Hyperlipidemia, unspecified; R76.0 Raised antibody titer

== ENCOUNTER → 2024-07-31 | Outpatient (CLI) | payer OTHER | END | disposition home or self-care (01) | LOC: ORTHO 04:08 | PROVIDERS: ATTEND Orthopaedic Surgery | DX: M19.041 Primary osteoarthritis, right hand (principal); M77.8 Other enthesopathies, not elsewhere classified; M25.741 Osteophyte, right hand; M65.331 Trigger finger, right middle finger ==

== ENCOUNTER → 2024-09-03 | Day surgery (SDC) | payer OTHER ==
[2024-09-02 09:06] LABS: BUN 15 mg/dl (9-23); CHLORIDE 106 mmol/L (98-107); POTASSIUM 4.5 mmol/L (3.4-5.1)
[~2024-09-03] VITALS: Ht 149.8 cm; Wt 64.4 kg
[~2024-09-03] MED LIST changes: +BUPIVACAINE 0.5% 10 ML VIAL ONE; +Clindamycin Phosphate 50 ML IV ONE; +Ketamine Hydrochloride 500 MG/10 ML VIAL IV ONE; +Lactated Ringer's Solution 500 ML IV ONE; +Lidocaine Hydrochloride 30 ML VIAL ONE; +Midazolam Hydrochloride 2 MG/2 ML VIAL IV ONE; +PROPOFOL 200 MG/20 ML VIAL IV ONE; +fentaNYL CITRATE 100 MCG/2 ML VIAL IV ONE
[2024-09-03 07:13] VITALS: BP 126/77
[2024-09-03 07:57] VITALS: BP 135/78
[2024-09-03 08:13] VITALS: BP 154/84
[2024-09-03 08:27] VITALS: BP 132/76
[2024-09-03 11:28] VITALS: BP 135/78
== END | disposition home or self-care (01) ==
LOC: SDC 08-31 08:00
PROVIDERS: ATTEND Orthopaedic Surgery
DX: G56.01 Carpal tunnel syndrome, right upper limb (principal); M65.331 Trigger finger, right middle finger; M65.841 Other synovitis and tenosynovitis, right hand; I10 Essential (primary) hypertension; E11.9 Type 2 diabetes mellitus without complications; E03.9 Hypothyroidism, unspecified; J44.1 Chronic obstructive pulmonary disease with (acute) exacerbation; E78.00 Pure hypercholesterolemia, unspecified; F41.9 Anxiety disorder, unspecified; F31.9 Bipolar disorder, unspecified; Z90.710 Acquired absence of both cervix and uterus; Z96.653 Presence of artificial knee joint, bilateral; Z90.49 Acquired absence of other specified parts of digestive tract; Z86.73 Personal history of transient ischemic attack (TIA), and cerebral infarction without residual deficits; Z98.890 Other specified postprocedural states; Z79.82 Long term (current) use of aspirin; Z79.899 Other long term (current) drug therapy; Z91.013 Allergy to seafood; Z88.0 Allergy status to penicillin; Z88.5 Allergy status to narcotic agent; Z88.8 Allergy status to other drugs, medicaments and biological substances; Z82.49 Family history of ischemic heart disease and other diseases of the circulatory system

== ENCOUNTER → 2024-09-15 | Outpatient (CLI) | payer OTHER ==
[~2024-09-15] MED LIST changes: -BUPIVACAINE 0.5% 10 ML VIAL ONE; -Clindamycin Phosphate 50 ML IV ONE; -Ketamine Hydrochloride 500 MG/10 ML VIAL IV ONE; -Lactated Ringer's Solution 500 ML IV ONE; -Lidocaine Hydrochloride 30 ML VIAL ONE; -Midazolam Hydrochloride 2 MG/2 ML VIAL IV ONE; -PROPOFOL 200 MG/20 ML VIAL IV ONE; -fentaNYL CITRATE 100 MCG/2 ML VIAL IV ONE
== END | disposition home or self-care (01) ==
LOC: US 01:03
PROVIDERS: ATTEND Internal Medicine Endocrinology, Diabetes & Metabolism
DX: E04.2 Nontoxic multinodular goiter (principal); E03.9 Hypothyroidism, unspecified

== ENCOUNTER → 2025-01-14 | Day surgery (SDC) | payer OTHER ==
[2025-01-13 09:08] LABS: BUN 17 mg/dl (9-23); CHLORIDE 105 mmol/L (98-107); POTASSIUM 4.6 mmol/L (3.4-5.1)
[~2025-01-14] VITALS: Ht 149.8 cm; Wt 63.5 kg
[~2025-01-14] MED LIST changes: +BUPivacaine 0.5% 10 ML VIAL ONE; +Lidocaine Hydrochloride 2% 5 ML SDV IV ONE; +Lidocaine Hydrochloride 5 ML AMP ONE; +MOUNJARO5 MG/0.51 SQ; +PROPOFOL 200 MG/20 ML VIAL IV ONE; +SODIUM CHLORIDE 0.9% 1,000 ML IV ONE; +ceFAZolin sodium 1GM/10ML IV SCH; +ceFAZolin sodium/sodium chlor 10 ML IV ONE
[2025-01-14 06:57] VITALS: BP 129/84
[2025-01-14 08:03] VITALS: BP 114/62
[2025-01-14 08:18] VITALS: BP 107/58
[2025-01-14 08:33] VITALS: BP 121/86
== END | disposition home or self-care (01) ==
LOC: SDC 01-12 08:00
PROVIDERS: ATTEND Orthopaedic Surgery
DX: M65.311 Trigger thumb, right thumb (principal); M65.841 Other synovitis and tenosynovitis, right hand; I10 Essential (primary) hypertension; E11.9 Type 2 diabetes mellitus without complications; E03.9 Hypothyroidism, unspecified; E78.00 Pure hypercholesterolemia, unspecified; J44.9 Chronic obstructive pulmonary disease, unspecified; F31.9 Bipolar disorder, unspecified; Z90.710 Acquired absence of both cervix and uterus; Z86.73 Personal history of transient ischemic attack (TIA), and cerebral infarction without residual deficits; Z96.653 Presence of artificial knee joint, bilateral; Z90.49 Acquired absence of other specified parts of digestive tract; Z98.890 Other specified postprocedural states; Z79.82 Long term (current) use of aspirin; Z79.899 Other long term (current) drug therapy; Z88.0 Allergy status to penicillin; Z91.013 Allergy to seafood; Z88.2 Allergy status to sulfonamides; Z88.8 Allergy status to other drugs, medicaments and biological substances; Z82.3 Family history of stroke; Z82.49 Family history of ischemic heart disease and other diseases of the circulatory system

== ENCOUNTER → 2025-01-25 | Outpatient (CLI) | payer OTHER ==
[~2025-01-25] MED LIST changes: -BUPivacaine 0.5% 10 ML VIAL ONE; -Lidocaine Hydrochloride 2% 5 ML SDV IV ONE; -Lidocaine Hydrochloride 5 ML AMP ONE; -PROPOFOL 200 MG/20 ML VIAL IV ONE; -SODIUM CHLORIDE 0.9% 1,000 ML IV ONE; -ceFAZolin sodium 1GM/10ML IV SCH; -ceFAZolin sodium/sodium chlor 10 ML IV ONE
== END | disposition home or self-care (01) ==
LOC: LAB 13:19
PROVIDERS: ATTEND Nurse Practitioner Primary Care
DX: R19.7 Diarrhea, unspecified (principal)

== ENCOUNTER → 2025-02-08 | Outpatient (CLI) | payer OTHER | END | disposition home or self-care (01) | LOC: RAD 09:41 | PROVIDERS: ATTEND Nurse Practitioner Primary Care | DX: Z12.31 Encounter for screening mammogram for malignant neoplasm of breast (principal); Z13.820 Encounter for screening for osteoporosis; M85.88 Other specified disorders of bone density and structure, other site; Z78.0 Asymptomatic menopausal state ==

== ENCOUNTER → 2025-03-25 | Outpatient (CLI) | payer OTHER ==
[~2025-03-25] MED LIST changes: +ATORVASTATIN CA40 M1 PO; +CALCIUM 600-VI1 EA10 PO; +DICYCLOMINE HYD10 MG PO; +LINZESS145 MC1 PO; +MAGNESIUM GLYC100 M1 PO; +MOUNJARO10 MG/0.1 SQ; -MOUNJARO5 MG/0.51 SQ; +OMEPRAZOLE40 MG PO; +Regadenoson 0.4 MG/5 ML SYR IV ONE; +STOOL SOFTENER100 M3 PO
== END | disposition home or self-care (01) ==
LOC: CARD 01:06
PROVIDERS: ATTEND Internal Medicine Cardiovascular Disease
DX: I51.7 Cardiomegaly (principal); I45.10 Unspecified right bundle-branch block; R07.89 Other chest pain; R06.00 Dyspnea, unspecified; R29.810 Facial weakness; R42 Dizziness and giddiness

== ENCOUNTER 2025-03-27 12:05 | Emergency (ER) | payer OTHER ==
[~2025-03-27] VITALS: Wt 61.2 kg
[~2025-03-27 12:05] MED LIST changes: -Regadenoson 0.4 MG/5 ML SYR IV ONE
[2025-03-27 12:13] VITALS: BP 120/66
[2025-03-27] MEDS ORDERED: Acetaminophen/Hydrocodone 5 MG/325 MG TABLET PO ONE (12:30)
== END 2025-03-27 13:20 | disposition home or self-care (01) ==
LOC: ED 12:05
DX: S62.91XA Unspecified fracture of right hand, initial encounter for closed fracture (principal); Z91.041 Radiographic dye allergy status; Z88.5 Allergy status to narcotic agent; Z88.0 Allergy status to penicillin; Z88.1 Allergy status to other antibiotic agents; Z91.013 Allergy to seafood; Z79.899 Other long term (current) drug therapy; Z79.82 Long term (current) use of aspirin; Z90.711 Acquired absence of uterus with remaining cervical stump; Z90.89 Acquired absence of other organs; Z98.890 Other specified postprocedural states; W22.8XXA Striking against or struck by other objects, initial encounter; Y93.89 Activity, other specified; Y92.89 Other specified places as the place of occurrence of the external cause; Y99.8 Other external cause status

== ENCOUNTER → 2025-05-03 | Outpatient (CLI) | payer OTHER | END | disposition home or self-care (01) | LOC: LAB 12:43 → MRI 13:00 | PROVIDERS: ATTEND Orthopaedic Surgery | DX: S52.691A Other fracture of lower end of right ulna, initial encounter for closed fracture (principal); S67.21XA Crushing injury of right hand, initial encounter; M19.031 Primary osteoarthritis, right wrist; M77.8 Other enthesopathies, not elsewhere classified; J98.11 Atelectasis; R60.0 Localized edema; X58.XXXA Exposure to other specified factors, initial encounter; Y93.89 Activity, other specified; Y92.89 Other specified places as the place of occurrence of the external cause; Y99.8 Other external cause status ==

== ENCOUNTER → 2025-05-07 | Outpatient (CLI) | payer OTHER | END | disposition home or self-care (01) | LOC: RAD 16:54 | PROVIDERS: ATTEND Nurse Practitioner Family | DX: M48.07 Spinal stenosis, lumbosacral region (principal); M47.817 Spondylosis without myelopathy or radiculopathy, lumbosacral region; M43.17 Spondylolisthesis, lumbosacral region; M48.04 Spinal stenosis, thoracic region; M25.78 Osteophyte, vertebrae; M54.9 Dorsalgia, unspecified ==

== ENCOUNTER → 2025-05-10 | Outpatient (CLI) | payer OTHER | END | disposition home or self-care (01) | LOC: LAB 13:57 | PROVIDERS: ATTEND Psychiatry & Neurology Clinical Neurophysiology | DX: G31.84 Mild cognitive impairment of uncertain or unknown etiology (principal) ==

== ENCOUNTER → 2025-05-28 | Outpatient (CLI) | payer OTHER ==
[2025-05-28 11:07] LABS: BUN 18 mg/dl (9-23); FREE T4 1.11 ng/dl (0.89-1.76); LDL CHOLESTEROL 99 mg/dL (9-159); SGPT/ALT 18 U/L (5-49)
== END ==
LOC: LAB 10:15
PROVIDERS: Student in an Organized Health Care Education/Training Program; ATTEND Internal Medicine Endocrinology, Diabetes & Metabolism
DX: E03.9 Hypothyroidism, unspecified (principal)